=== PATIENT | male | born 1995 | race Caucasian/White ===

== ENCOUNTER 2022-12-07 10:24 | Emergency (ER) | payer MEDICAID, OTHER ==
[~2022-12-07] VITALS: Ht 182.9 cm; Wt 124.7 kg
[2022-12-07 10:34] VITALS: BP 151/86
[2022-12-07 11:55] LABS: EOSINOPHILS % 2.6 % (0.0-5.0); HEMATOCRIT. 45.3 % (42.0-52.0); HEMOGLOBIN. 15.7 g/dL (14.0-18.0); LYMPHOCYTES % 49.8 % (20.0-50.0); MEAN CORPUSCULAR HEMOGLOBIN 28.9 pg (28.0-32.0); MEAN CORPUSCULAR VOLUME 83.7 fL (80.0-94.0); MEAN PLATELET VOLUME 7.7 fl (7.4-10.4); MONOCYTES % 7.4 % (2.0-8.0); NEUTROPHILS % 39.2 % (40.0-76.0); PLATELET 241 x1000/uL (130-400); RED BLOOD CELL COUNT 5.41 mill/uL (4.7-6.1); RED CELL DISTRIBUTION WIDTH 13.8 % (11.6-14.6)
[2022-12-07 12:03] LABS: CHLORIDE 110 mEq/L (98-107)
[2022-12-07 13:16] LABS: CLARITY URINE CLEAR (CLEAR); COLOR URINE YELLOW (YELLOW); KETONES URINE NEGATIVE (NEGATIVE); LEUKOCYTE ESTERASE URINE NEGATIVE (NEGATIVE); NITRITE URINE NEGATIVE (NEGATIVE); OCCULT BLOOD URINE NEGATIVE (NEGATIVE); PH URINE 5.5 (4.5-8.0); PROTEIN URINE NEGATIVE (NEGATIVE); SPECIFIC GRAVITY URINE 1.029 (1.005-1.030)
== END 2022-12-07 15:20 | disposition home or self-care (01) ==
LOC: ER 10:24
DX: R07.89 Other chest pain (principal)
CPT/HCPCS: 36415; 71046; 80053; 81003; 85025; 93005; 99285

== ENCOUNTER 2025-06-22 03:50 | Emergency (ER) | payer BC, MEDICAID ==
[~2025-06-22] VITALS: Ht 172.7 cm; Wt 134.0 kg
[2025-06-22 03:54] VITALS: O2SAT 97
[2025-06-22 04:48] LABS: BASOPHILS % 0.8 % (0.0-2.0); EOSINOPHILS % 2.0 % (0.0-5.0); HEMATOCRIT. 44.9 % (42.0-52.0); HEMOGLOBIN. 15.1 g/dL (14.0-18.0); LYMPHOCYTES % 42.7 % (20.0-50.0); MEAN PLATELET VOLUME 8.2 fl (7.4-10.4); MONOCYTES % 7.7 % (2.0-8.0); NEUTROPHILS % 46.8 % (40.0-76.0); PLATELET 226 x1000/uL (130-400); RED BLOOD CELL COUNT 5.28 mill/uL (4.7-6.1); RED CELL DISTRIBUTION WIDTH 13.8 % (11.6-14.6)
[2025-06-22 05:02] LABS: CREATININE 1.1 mg/dL (0.6-1.3)
[2025-06-22 05:03] LABS: ETHANOL BLOOD < 10 mg/dL (<10); PROTEIN TOTAL 7.0 g/dL (6.0-8.3); UREA NITROGEN BLOOD 12 mg/dL (9-23)
[2025-06-22 05:04] LABS: ASPARTATE AMINOTRANSFERASE 47 IU/L (<34)
[2025-06-22 05:05] LABS: BILIRUBIN DIRECT 0.3 mg/dL (<=3.0); BILIRUBIN TOTAL 1.1 mg/dL (0.1-1.0)
[2025-06-22 08:35] LABS: *AMPHETAMINES SCREEN URINE NEGATIVE (NEGATIVE)
[2025-06-22 08:36] LABS: *BARBITURATES SCREEN URINE NEGATIVE (NEGATIVE); *BENZODIAZEPINES SCREEN URINE NEGATIVE (NEGATIVE); *COCAINE SCREEN URINE NEGATIVE (NEGATIVE); METHADONE URINE SCREEN NEGATIVE (NEGATIVE); OPIATES URINE SCREEN NEGATIVE (NEGATIVE)
[2025-06-22 08:37] LABS: CANNABINOID URINE SCREEN NEGATIVE (NEGATIVE); ECSTASY MDMA SCREEN URINE NEGATIVE (NEGATIVE); PHENCYCLIDINE URINE SCREEN NEGATIVE (NEGATIVE)
[2025-06-22] MEDS: ARIPIPRAZOLE 5MG TABLET PO SCH (11:21)
[2025-06-22] MEDS: LAMOTRIGINE 25MG TABLET PO SCH (11:21)
[2025-06-22 12:44] VITALS: BP 107/67; PULSE 79; RESP 18; TEMP 36.5; O2SAT 98
== END 2025-06-22 13:01 ==
LOC: ER 03:50
DX: R45.851 Suicidal ideations (principal); Z79.899 Other long term (current) drug therapy; Z20.822 Contact with and (suspected) exposure to COVID-19
CPT/HCPCS: 36415; 80048; 80076; 80305; 80307; 80320; 80329; 85025; 87426; 93005; 99285; G0480